=== PATIENT | male | born 1985 | race Caucasian/White ===

== ENCOUNTER 2022-07-05 12:44 | Emergency (ER) | payer SELFPAY ==
[2022-07-05] MEDS ORDERED: NORFLEX 100 MG100 MG PO (16:08)
[2022-07-05] MEDS ORDERED: MEDROL DOSEPAK 24 MG PO (16:08)
== END 2022-07-05 16:11 | disposition home or self-care (01) ==
LOC: ER1 12:44
DX: M54.50 Low back pain, unspecified (principal); G89.29 Other chronic pain; M51.36 Other intervertebral disc degeneration, lumbar region; F17.290 Nicotine dependence, other tobacco product, uncomplicated
CPT/HCPCS: 72131; 96372; 99283; J1100